=== PATIENT | female | born 1985 | race Caucasian/White ===

== ENCOUNTER → 2022-01-22 | Outpatient (CLI) | payer OTHER ==
--- NOTE | 2022-01-22 11:28 | RAD ---
PROCEDURE: US BREAST RT, MG DIGITAL BILAT DIAGNOSTIC MAMMO WITH LYNDSAY HISTORY: The patient is 36 years old and is seen for Reason: RT LUMP / Spl. Instructions: / History: . COMPARISON: None TECHNIQUE: CC and MLO views of both breasts were obtained. Images were processed by the [employer] computer-aided detection system. Targeted ultrasound of the right breast DENSITY: The breast parenchyma is heterogeneously dense. This may lower the sensitivity of mammograph y. FINDINGS: Left mammogram: No developing mass, suspicious calcifications or architectural distortion. Benign-ned earing calcifications. Right mammogram: Cluster microcalcifications within the right upper outer breast. Spot compression vi ews were obtained. Rounded exam orifice calcifications noted. The calcifications have a linear appear ance on MLO view and may represent milk of calcium calcifications. Well-circumscribed mass within the right medial breast measures 0.4 x 0.3 cm and approximately 6.9 cm from the nipple. Right ultrasound: Small complicated cystic lesion within the right breast in the region of the patien t's palpable concern 2:00 position 1 cm from the nipple measures 0.8 x 0.7 x 0.6 cm. Dense fibrous ti ssue within this region. Well-circumscribed and hypoechoic mass within the right medial breast 3:00 position 6 imaged from the nipple measures 0.5 x 1.0 x 0.4 cm. No suspicious posterior shadowing. Corresponds with mammographic finding. IMPRESSION: 1. Hypoechoic lesion within the right medial breast, may represent complicated cyst or fibroadenoma. 2. Complicated cyst within the region of the patient's palpable concern 2:00 position. 3. Clustered microcalcifications within the right upper outer breast, may represent milk of calcium calcifications. Recommend 6 month follow-up right breast mammogram and ultrasound. BI-RADS category 3 Probably benign Our clinic nurse has been instructed to assist with communicating findings and recommendations to the patient's referring physician and in scheduling follow-up. Patient entered into a reminder system for annual screening mammogram. Electronically signed by: Chad Valdes DO (01/22/2022 11:26 AM) [id number]
== END ==
LOC: MAMMO 10:06
PROVIDERS: ATTEND Physician Assistant
DX: N63.11 Unspecified lump in the right breast, upper outer quadrant (principal); N63.41 Unspecified lump in right breast, subareolar
CPT/HCPCS: 76641; 77066; G0279; 77062